=== PATIENT | female | born 1955 | race Caucasian/White ===

== ENCOUNTER 2017-03-06 00:21 | Emergency (ER) | payer BC ==
[2017-03-06 00:32] VITALS: RESP 18
[2017-03-06] MEDS ORDERED: KETOROLAC 60 MG/2 ML VIAL IM STA (00:47)
[2017-03-06] MEDS ORDERED: ORPHENADRINE 30 MG/ML 2 ML VIAL IM STA (00:47)
--- NOTE | 2017-03-06 00:55 | ED ---
Neck Injury/Pain HPI - General Chief Complaint: Neck Pain/Injury Stated Complaint: Headache/Neck Pain Time Seen by Provider: 03/06/17 00:35 Mode of arrival: ambulatory Limitations: no limitations - History of Present Illness Initial Comments: This patient is a 62-year-old woman who presents to be evaluated for right lateral neck pain and stiffness. The patient states that she had been mowing her lawn earlier today, looking over her shoulder quite a bit, and then the pains started tonight. Patient rates the pain as constant, severe, sharp, and worse if she attempts to move her head. The patient has not had fever or chills , neurologic symptoms, chest pain, back pain or dyspnea. Denies other symptoms. MD Complaint: neck pain -: hour(s) Place: street/outdoors Radiation: right lateral, right shoulder Severity: severe Quality: sharp Consistency: constant Improves With: none Worsens With: movement of neck Associated Symptoms: none Treatments Prior to Arrival: Ibuprofen - Related Data Home Medications Medication Instructions Recorded Confirmed DULoxetine HCL [Cymbalta] 20 mg PO 03/06/17 Previous Rx's Medication Instructions Recorded Methocarbamol [Robaxin-750] 750 mg PO TID PRN #30 tablet 03/06/17 predniSONE 60 mg PO DAILY #30 tab 03/06/17 traMADol HCl [Ultram] 50 mg PO Q6H PRN #20 tab 03/06/17 Allergies Allergy/AdvReac Type Severity Reaction Status Date / Time No Known Allergies Allergy Verified 03/06/17 00:31 Review of Systems ROS Statement: Those systems with pertinent positive or pertinent negative responses have been documented in the HPI. ROS Other: All systems not noted in ROS Statement are negative. Constitutional: Denies: fever, chills, weakness Respiratory: Denies: cough, dyspnea Cardiovascular: Denies: chest pain, palpitations Gastrointestinal: Denies: abdominal pain Musculoskeletal: Reports: as per HPI. Denies: back pain Skin: Denies: rash Neurological: Denies: headache, weakness, numbness, paresthesias Past Medical History Past Medical History: Fibromyalgia History of Any Multi-Drug Resistant Organisms: MRSA Date of last positivie culture/infection: 2006 MDRO Source:: back Past Surgical History: Section, Hysterectomy, Tonsillectomy Additional Past Surgical History / Comment(s): ovarian cyst Past Psychological History: No Psychological Hx Reported Smoking Status: Never smoker Past Alcohol Use History: Rare Past Drug Use History: None Reported General Exam Limitations: no limitations General appearance: alert Head exam: Present: atraumatic, normocephalic Eye exam: Present: normal appearance Neck exam: Present: tenderness, other (Patient is resisting rotation of the neck and extension of the neck. There is tenderness to the paraspinal muscles along the right side of the neck and also to the trapezius on the right side. There is increased muscle tone. There is no bony tenderness or deformity there is no left-sided muscular tenderness or tone.). Absent: meningismus Respiratory exam: Present: normal lung sounds bilaterally. Absent: respiratory distress, wheezes, rales, rhonchi, stridor Cardiovascular Exam: Present: regular rate, normal rhythm, normal heart sounds. Absent: systolic murmur, diastolic murmur, rubs, gallop GI/Abdominal exam: Present: soft. Absent: distended, tenderness, guarding, rebound Back exam: Absent: paraspinal tenderness, vertebral tenderness Neurological exam: Present: alert, normal gait Skin exam: Present: warm, dry, intact, normal color. Absent: rash Course Vital Signs 03/06/17 00:27 Temperature 97.3 F L Pulse Rate 69 Respiratory 18 Rate Blood Pressure 157/81 O2 Sat by Pulse 98 Oximetry Disposition Clinical Impression: Strain of neck muscle, Torticollis Disposition: HOME SELF-CARE Condition: Good Instructions: Cervical Strain (ED) Prescriptions: Methocarbamol [Robaxin-750] 750 mg PO TID PRN #30 tablet PRN Reason: pain predniSONE 60 mg PO DAILY #30 tab traMADol HCl [Ultram] 50 mg PO Q6H PRN #20 tab PRN Reason: Pain Referrals: Ke Real MD [Primary Care Provider] - 1-2 days Jason Hernández DO [Doctor of Osteopathic Medicine] - 1-2 days
[2017-03-06] MEDS ORDERED: DIAZEPAM 5 MG/ML 2 ML INJ IM ONE (01:40)
[2017-03-06] MEDS ORDERED: HYDROmorphone 1 MG/ML 1 ML SYRINGE IVP STA (02:32)
[2017-03-06] MEDS ORDERED: predniSONE 20 MG TAB PO STA (02:35)
[2017-03-06] MEDS ORDERED: HYDROmorphone 1 MG/ML 1 ML SYRINGE IM STA (02:45)
[2017-03-06 03:29] VITALS: BP 134/79; PULSE 67; TEMP 97.6
== END 2017-03-06 03:29 | disposition home or self-care (01) ==
LOC: EC 00:21
DX: S16.1XXA Strain of muscle, fascia and tendon at neck level, initial encounter (principal); M43.6 Torticollis; Z79.899 Other long term (current) drug therapy; X58.XXXA Exposure to other specified factors, initial encounter; Y93.H2 Activity, gardening and landscaping; Y92.410 Unspecified street and highway as the place of occurrence of the external cause
CPT/HCPCS: 99283 ×2; 96372 ×5; J2360; J3360; J1885; J1170; J7512

== ENCOUNTER 2018-07-05 06:18 | Day surgery (SDC) | payer BC, MEDICARE ==
[~2018-07-05 06:18] MED LIST: DEXAMETHASONE SOD PHOSPHATE 10 MG/ML 1 ML VIAL IV ONE; HYDROmorphone 0.5 MG/0.5 ML SYRINGE IVP PRN; LIDOCAINE 1% 20 ML VIAL (10MG/ML) FOR IV START INTRADERMA PRN; ONDANSETRON 4 MG/2 ML VIAL IVP ONE; SCOPOLAMINE 1.5MG/72HR PATCH TRANSDERM ONE; SODIUM CHLORIDE 0.9% 1,000 ML IV SCH
[2018-07-05] MEDS ORDERED: MIDAZOLAM 2 MG/2 ML VIAL ONE (07:13)
[2018-07-05] MEDS ORDERED: PHENYLEPHRINE-0.9% NACL SYG 1 MG/10 ML SYRINGE ONE (07:13)
[2018-07-05] MEDS ORDERED: ISOPROTERENOL 250 MCG/1.25 ML SYR IV ONE (07:13)
[2018-07-05] MEDS ORDERED: fentaNYL (PF) 50 MCG/ML 2 ML AMP ONE (07:13)
[2018-07-05] MEDS ORDERED: PROPOFOL 10 MG/ML 20 ML VIAL IV ONE (07:13)
[2018-07-05] MEDS ORDERED: LIDOCAINE 1% INJ 10MG/ML (20 ML MDV) ONE (08:06)
[2018-07-05] MEDS ORDERED: LIDOCAINE 1% INJ 10MG/ML (20 ML MDV) SQ ONE (08:07)
[2018-07-05] MEDS ORDERED: HEPARIN SODIUM (1,000 UNIT/ML) 1,000 UNIT in SODIUM CHLORIDE 0.9% 1,000 ML IRRIGATION ONE (09:40)
[2018-07-05] MEDS ORDERED: HYDROcodone/APAP 5-325MG 1 EACH TAB PO PRN (11:40)
[2018-07-05] MEDS ORDERED: ACETAMINOPHEN TAB 325 MG TAB PO PRN (11:40)
--- NOTE | 2018-07-05 11:50 | P.PRLE ---
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 She had an easily inducible right atrial tachycardia. She also had easily inducible atrial fibrillation The right atrial tachycardia was mapped to the anterior lateral mid right atrium just outside the base of the right atrial appendage. Successful ablation at this site resulted in elimination of the right atrial tachycardia as well as atrial fibrillation. This atrial tachycardia is very likely at least one of her sources of atrial fibrillation. At this point I do not plan to treat her with any antiarrhythmic drugs but will follow her to see if she has any further episodes of atrial fibrillation and if she needs a pulmonary vein isolation or not The LON VASC score is 2 based on her of gender and age and I would treat her with anticoagulation with a NOAC for at least 2 months. Postprocedure If she continues to have episodes of atrial fibrillation without atrial tachycardia, then lifelong anticoagulation should be considered Thank you for entrusting me with the care of the patient Warm regards Sincerely Martin Hernandez
[2018-07-05] MEDS: LACTATED RINGERS 1,000 ML IV SCH ×2 (11:56→12:54)
[2018-07-05] MEDS ORDERED: ACETAMINOPHEN IV (For NPO) 1,000 MG in EMPTY BAG 1 BAG IVPB ONE (12:00)
[2018-07-05 12:49] VITALS: BMI 24.6
--- NOTE | 2018-07-05 13:14 | PCN ---
PROCEDURE NOTE Prema Haney is a 63-year-old female who has had recurrent dizzy spells and palpitations and we have documented narrow complex tachycardia as well as wide-complex tachycardia, possibly an aberrancy. These have been symptomatic episodes and she was brought with presyncope and near syncope. She was brought in for diagnostic EP study and possible radiofrequency ablation. Patient was brought to the EP lab in a fasting state. Written informed consent was obtained prior to the procedure. The right and left groins were prepped and draped as per protocol. Three venous sheaths were placed in the right femoral vein, one venous sheath in the left femoral vein and via these diagnostic catheters were placed in the high right atrium, His bundle, RV and coronary sinus. Sinus cycle length was 835 milliseconds, SD interval 181 milliseconds, QRS 99 milliseconds and QT interval 429 milliseconds. AH interval 61 milliseconds, HV interval 48 milliseconds. Sinus node recovery times of 600 and 500 milliseconds were 1121 millisecond and 1181 milliseconds with a corresponding corrected sinus node recovery times within normal limits. When pacing to evaluate the sinus node at a cycle length of 400 milliseconds from the high right atrium, atrial fibrillation nonsustained, lasting for 10-20 seconds with spontaneous termination reproducibly induced. AV node Wenckebach block 410 milliseconds, Ventricular extra stimulation was performed.burst stimulation was performed ventricular stimulation up to double extra stimuli. No VT was induced. Atrial fibrillation was induced every time. Straight pacing was performed from the high right atrium Extra stimulation was performed from the high right atrium and from the coronary sinus and this resulted in induction of nonsustained atrial tachycardia with the high to low sequence consistent with the right atrial tachycardia. Isuprel was on Isuprel was given and this sustained atrial tachycardia was induced with extra stimulation at 400/ 80 milliseconds. The tachycardia cycle length varied from 300-380 milliseconds and a high to low sequence with him. An irrigated tip catheter was used to map the tachycardia in the right atrium. The tachycardia focus was mapped to the anterolateral an anterolateral right atrium just outside the base of the right atrial appendage on its lateral aspect. With catheter contact the tachycardia were mechanical termination would frequently occur around the site. Often with mechanical stimulation and during RF atrial fib, this tachycardia would organized atrial fibrillation. These points of mechanical termination as well as induction and termination of atrial fibrillation were also tagged and were very close to the right atrial tachycardia focus. Successful RF ablation was applied after 3D mapping and intracardiac echocardiography confirmed the absence of pericardial effusion. The end of the procedure were also confirmed and this was a smooth-walled portion of the skin of the right atrium full not heavily trabeculated area. These points were also tagged and the successful points for the study the early site of activation as well as the site of termination of atrial fibrillation during RF also tagged. RF ablation was applied around the site prior to RF ablation. The phrenic nerve in pacing was tested and there was no stimulation and there was no evidence for 5 nerve stimulation at the sites. Thereafter, RF ablation was applied broadly in this area resulted in elimination of the atrial tachycardia as well as elimination of inducibility of atrial fibrillation, both on and off Isuprel. At the end of the procedure, the catheter was placed high up in the some of the SVC and phrenic nerve could still for a definite nerve was intact. Taking all catheters were then removed at the end of the procedure. The patient was transferred back to telemetry. RESULT: 1. Diagnostic EP study revealing easily inducible right atrial free wall tachycardia, which is also the focus of atrial fibrillation. 2. Successful ablation this site resulted in elimination of both the right atrial tachycardia and this foci of atrial fibrillation . PLAN: 1. Anticoagulate for about 2 months with an anticoagulant. 2. Watch for any episodes of atrial fibrillation and reassess need for any pulmonary vein isolation in the future. MMODL / IJN: [id number] /
[2018-07-05] MEDS: APIXABAN 5 MG TAB PO SCH (15:51)
[2018-07-06] MEDS ORDERED: PANTOPRAZOLE 40 MG TABLET PO SCH (07:30)
--- NOTE | 2018-07-06 08:12 | P.DS ---
Providers Attending physician: Martin Hernandez Primary care physician: [facility] Course: Patient is doing well. She is ambulating in the hallways. She has no groin pain. No hematoma no swelling no chest pain no dizziness lightheadedness no arrhythmias Yesterday she underwent a diagnostic EP study which revealed right atrial tachycardia mid right atrium, anterior lateral. This was documented focus of her atrial tachycardia. Also degenerated to atrial fibrillation. After successful ablation A. fib was noninducible She is doing well vitals are stable blood pressure 111/61 mmHg respirations normal pulse rate in the 70s afebrile 98.4F Breath sounds are clear no rhonchi no crackles Heart sounds S1-S2 normal no murmurs or gallops no rub Abdomen soft Extended is warm no edema Impression Right atrial tachycardia with degenerates into atrial fibrillation status post successful ablation in both atrial tachycardia and atrial fibrillation was rendered noninducible Familial hypercholesterolemia with an LDL of 189 Patient is refusing statins. She has a family history of premature coronary artery disease Both grandfather and her father had premature CAD Plan ELIQUIS for at least 2 months and reassessment thereafter regarding atrial fibrillation. Crestor 20 mg by mouth daily Sleep apnea assessment, referral given Suggest Discharge home today and follow Dr. Araujo in about 1-2 weeks Had a detailed discussion with her regarding atrial fibrillation atrial tachycardia ELIQUIS and treatment of familial hypercholesterolemia and the use of statins I have had multiple discussions regarding the need for statins with her and I did this once again in the presence of a daughter Patient Condition at Discharge: Stable Plan - Discharge Summary Discharge Rx Participant: Yes New Discharge Prescriptions: New Apixaban [Eliquis] 5 mg PO BID #60 tab No Action DULoxetine HCL [Cymbalta] 60 mg PO DAILY Omeprazole Magnesium [PriLOSEC OTC] 20 mg PO DAILY Ibuprofen [Motrin] 800 mg PO RT-Q12H PRN PRN Reason: Mild To Moderate Pain Discharge Medication List DULoxetine HCL [Cymbalta] 60 mg PO DAILY 03/06/17 [History] Omeprazole Magnesium [PriLOSEC OTC] 20 mg PO DAILY 07/02/18 [History] Apixaban [Eliquis] 5 mg PO BID #60 tab 07/05/18 [Rx] Ibuprofen [Motrin] 800 mg PO RT-Q12H PRN 07/05/18 [History] Follow up Appointment(s)/Referral(s): Martin Hernandez MD [STAFF PHYSICIAN] - 2 Weeks (Groin check with Dr. Hernandez/ Jocy [place] nurse practitioner within 1-2 weeks) Activity/Diet/Wound Care/Special Instructions: Post EP study - Ablation instructions 1. Keep access sites dry for 2 days. 2. No heavy lifting or straining for 2 days. 3. Avoid bending the hips repeatedly for 2 days. 4. You may go up and down stairs slowly Call if the following is noted 1. Bleeding, increasing swelling or pain at the access sites. 2. Increasing chest discomfort, especially upon taking a deep breath. 3. Increasing shortness of breath, at rest or with exertion. 4. Undue cough / phlegm 5. Difficulty or pain while swallowing. 6. Pain or change in color in the extremities. 7. Fever, chills, rigors. 8. Increasing headache or neurologic symptoms. 9. Dizziness, fainting, palpitations Start ELIQUIS 5 mg twice daily or Xarelto 20 mg by mouth daily for 2 months post ablation Discharge Disposition: HOME SELF-CARE
[2018-07-06] MEDS: APIXABAN 5 MG TAB PO SCH (08:32)
[2018-07-06 08:46] VITALS: BP 98/64; PULSE 92; RESP 16; TEMP 98
[2018-07-06] MEDS ORDERED: DULoxetine HCL 60 MG CAPSULE.DR PO SCH (09:00)
== END 2018-07-06 10:55 | disposition home or self-care (01) ==
LOC: CATHEP 06:18 → 1SOBS 11:18 → CATHEP 07-06 10:55
PROVIDERS: ATTEND Internal Medicine Clinical Cardiac Electrophysiology
DX: I47.1 Supraventricular tachycardia (principal); I48.91 Unspecified atrial fibrillation; E78.00 Pure hypercholesterolemia, unspecified; E78.5 Hyperlipidemia, unspecified; K21.9 Gastro-esophageal reflux disease without esophagitis; Z82.49 Family history of ischemic heart disease and other diseases of the circulatory system; Z79.899 Other long term (current) drug therapy
CPT/HCPCS: 93623; 93662; 93613; 93653; C1894; C1769 ×2; C1730 ×2; C1731; C1759; C1732; J2250; J2001; J3010; J1644; J0131; J2370; J2704

== ENCOUNTER → 2018-07-18 | Outpatient (CLI) | payer MEDICARE ==
--- NOTE | 2018-07-19 05:32 | CONS ---
CONSULTATION DATE OF SERVICE: 07/18/2018 This 63-year-old lady had been been evaluated in sleep center to rule out obstructive sleep apnea-hypopnea syndrome. HISTORY OF PRESENT ILLNESS/SLEEP-WAKE EVALUATION: Patient's usual sleep schedule from 8:10 p.m. until 6:15 a.m. on working days and from 8:10 until 7 a.m. on weekends. She does have problem with falling asleep, has TV set in bedroom, sleeps on the side or stomach position with snoring. The patient wakes up from sleep up to 5 times and also moves a lot during the night according to her , significant amount of twitching of feet during the sleep. No history of sleep paralysis, cataplexy, or hypnagogic hallucinations. In the morning, patient wakes up tired. Has difficulties to pay attention, has problems with memory, concentration. [place] Sleepiness Scale increased to 9. PAST MEDICAL HISTORY: Positive for episodes of cardiac arrhythmia. I believe it was atrial fibrillation. The patient had ablation on July 05, 2018. Fibromyalgia, acid reflux. PAST SURGICAL HISTORY: , partial hysterectomy, tonsillectomy. MEDICATIONS: Rosuvastatin, Eliquis, Prilosec. SOCIAL HISTORY: Negative for smoking. Alcohol consumption occasional. FAMILY HISTORY: Heart problems, hyperlipidemia, arthritis, snoring, headaches, sinus problems, liver problems. REVIEW OF SYSTEMS: Multiple awakenings from sleep, twitching legs, tiredness and sleepiness during the day. PHYSICAL EXAMINATION: During physical exam, a lady without distress. VITAL SIGNS: BP 129/67, HR 77, RR 16, height 5 feet 1 inch, weight 136 pounds, body mass index 25.6, temperature 96.9, oxygen saturation at room air 99%HEENT: PERRLA, EOMI. Oropharynx practically normal position of soft palate vertically, but very short distance between soft palate and posterior pharyngeal wall. Slight restriction of nasal breathing. NECK: Supple, no JVD. Thyroid is not palpable. LUNGS: Clear to percussion and to auscultation. Good air exchange. No wheezing or rhonchi. HEART: S1, S2 regular. No murmurs, gallops, or rubs. ABDOMEN: Soft and nontender. Bowel sounds are present. No organomegaly appreciated. EXTREMITIES: No clubbing or cyanosis. 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 Cranial nerves 2 to 7 intact. There is no fasciculation or atrophy. noted. No focal deficits observed. IMPRESSION: 1. Snoring, multiple awakenings from sleep, tiredness and sleepiness during the day. Possible obstructive sleep apnea-hypopnea syndrome. 2. Significant amount of twitching legs at night, periodic limb movements. 3. History of cardiac arrhythmias, status post ablation on July 05, 2018. 4. Fibromyalgia. 5. Acid reflux. 6. Status post . 7. Status post partial hysterectomy. 8. Status post tonsillectomy. PLAN: 1. Polysomnography for evaluation of patient's breathing during sleep. 2. CPAP/BiPAP titration if sleep study confirms obstructive sleep apnea-hypopnea syndrome. 3. Preferable position during sleep on the side. 4. No driving if patient feels any sleepiness. 5. I will see patient for follow up visit to explain results of testing and following plan. Thank you very much for referring this patient for consultation. Sincerely, Hayder Bernard MD, PhD, FAASM Diplomat of [employer] [facility] [place] MMODL / IJN: [id number] /
== END ==
LOC: SLEEP 16:11
PROVIDERS: ATTEND Internal Medicine
DX: R06.83 Snoring (principal); G47.61 Periodic limb movement disorder; M79.7 Fibromyalgia; K21.9 Gastro-esophageal reflux disease without esophagitis; Z90.711 Acquired absence of uterus with remaining cervical stump; Z90.89 Acquired absence of other organs; Z98.890 Other specified postprocedural states; Z79.899 Other long term (current) drug therapy; Z79.01 Long term (current) use of anticoagulants; Z86.79 Personal history of other diseases of the circulatory system
CPT/HCPCS: 99211

== ENCOUNTER → 2019-07-22 | Day surgery (SDC) | payer MEDICARE ==
[2019-07-18 16:03] VITALS: BMI 25.6
[~2019-07-22] MED LIST changes: -DEXAMETHASONE SOD PHOSPHATE 10 MG/ML 1 ML VIAL IV ONE; -HYDROmorphone 0.5 MG/0.5 ML SYRINGE IVP PRN; -LIDOCAINE 1% 20 ML VIAL (10MG/ML) FOR IV START INTRADERMA PRN; +LIDOCAINE 1% INJ 10MG/ML (20 ML MDV) ONE; +LIDOCAINE 1% INJ 10MG/ML (20 ML MDV) SQ ONE; +MIDAZOLAM 2 MG/2 ML VIAL IVP ONE; -ONDANSETRON 4 MG/2 ML VIAL IVP ONE; -SCOPOLAMINE 1.5MG/72HR PATCH TRANSDERM ONE
[2019-07-22 09:22] VITALS: BP 126/70; PULSE 90; RESP 16; TEMP 98.1
--- NOTE | 2019-07-22 10:26 | P.PCN ---
Preoperative Diagnosis: Loop monitor implant Primary physicians: Dr. Real Deicer Inspector Electric: Dr. Hernandez Indication: AF detection and management, post cryoablation of the pulmonary veins Patient was brought to the EP lab in a fasting state. Written informed consent was obtained prior to the procedure. The left pectoral area was prepped and draped per protocol. Intravenous antibiotic was administered preoperatively. A subcutaneous Loop monitor was implanted successfully and the wound was closed per protocol. The device was programmed to detect significant luzmaria- arrhythmic and tachy-arrhythmic events, per protocol. Device and programming details: Improvised ILR settings for AF detection and management Pause = 4.5 seconds, number of beats to detect bradycardia = 12, tachycardia detection rate 162 beats a minute and tachycardia detection beats = 48, to reduce false-positive detection Patient underwent EP procedure under conscious sedation/moderate sedation, monitoring of the level of consciousness and physiologic parameters including but not limited to vital signs and oxygenation. Patient tolerated the procedure well without any acute complications. Start time: 1004 Stop time: 1011
--- NOTE | 2019-07-22 10:29 | P.PRLE ---
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 She is not on any anticoagulants now. Her LON VASC score is 2 him a age greater than 65 years and female gender and the revised and recommendations for anticoagulation for females with atrial fibrillation is for LON VASC score starting at 3 I implanted a loop monitor for A. fib detection and management successfully This should help us with her future AF management Thank you for entrusting me with the care of the patient Warm regards Sincerely Martin Hernandez
== END ==
LOC: CATHEP 09:04
PROVIDERS: ATTEND Internal Medicine Clinical Cardiac Electrophysiology
DX: I48.0 Paroxysmal atrial fibrillation (principal); I47.1 Supraventricular tachycardia; R00.2 Palpitations; R42 Dizziness and giddiness; M54.9 Dorsalgia, unspecified; I73.9 Peripheral vascular disease, unspecified; Z82.49 Family history of ischemic heart disease and other diseases of the circulatory system; Z79.899 Other long term (current) drug therapy
CPT/HCPCS: 33285; C1764; J2250; J0690; J2001

== ENCOUNTER → 2023-01-09 | Day surgery (SDC) | payer MEDICARE ==
[2023-01-02 16:00] VITALS: BMI 24.5
[~2023-01-09] MED LIST changes: -MIDAZOLAM 2 MG/2 ML VIAL IVP ONE; +fentaNYL (PF) 50 MCG/ML 2 ML AMP IVP ONE; +fentaNYL (PF) 50 MCG/ML 2 ML AMP ONE
[2023-01-09 10:19] VITALS: BP 146/78; RESP 18; TEMP 97.8
--- NOTE | 2023-01-09 16:19 | P.EPPROC ---
- EP Procedure Note Electrophysiology Procedure Note: Procedure: Loop explant under sedation and local anesthesia. Diagnosis: Loop monitor at LEDY Patient was brought to the EP lab in a fasting state. Written informed consent was obtained prior to the procedure. The subcutaneous device was successfully explanted under local anesthesia. Preoperative antibiotics were administered. The wound was closed in layers and dressed per protocol. Result: Successful loop monitor explantation. Loop monitor implant Primary physicians: [employer] Consultant: Dr. Hernandez Indication: Recurrent palpitations, presyncope and history of atrial fibrillation Patient was brought to the EP lab in a fasting state. Written informed consent was obtained prior to the procedure. The left pectoral area was prepped and draped per protocol. Intravenous antibiotic was administered preoperatively. A subcutaneous Loop monitor was implanted successfully and the wound was closed per protocol. The device was programmed to detect significant luzmaria- arrhythmic and tachy-arrhythmic events, per protocol. Device and programming details: A. fib protocol Patient underwent EP procedure under conscious sedation/moderate sedation, monitoring of the level of consciousness and physiologic parameters including but not limited to vital signs and oxygenation. Patient tolerated the procedure well without any acute complications. Start time: 1129 Stop time: 1207
== END ==
LOC: CATHEP 10:04
PROVIDERS: ATTEND Internal Medicine Clinical Cardiac Electrophysiology
DX: R00.2 Palpitations (principal); I47.1 Supraventricular tachycardia; I73.9 Peripheral vascular disease, unspecified; Z86.79 Personal history of other diseases of the circulatory system; Z82.49 Family history of ischemic heart disease and other diseases of the circulatory system
CPT/HCPCS: 33285; 33286; C1764; J0690; J2001; J3010

== ENCOUNTER → 2023-04-11 | Outpatient (CLI) | payer MEDICARE ==
--- NOTE | 2023-04-15 10:00 | MR ---
EXAMINATION TYPE: MR lumbar spine wo con DATE OF EXAM: 04/11/2023 5:00 PM CLINICAL INDICATION:Female, 68 years old with history of M54.42 M53.2X8, Low back that radiates down both legs. COMPARISON: None TECHNIQUE: Multi planar, multi sequence imaging was performed utilizing: T1-weighted, T2-weighted, a nd turbo inversion recovery imaging of the lumbar spine. IV Contrast: (None if empty) FINDINGS: Alignment: The lumbar vertebral bodies have preserved heights with grade 1 anterolisthesis of L5 on S 1. Cord: The conus medullaris and the distal spinal cord appear unremarkable with regards to their signa l intensity and morphology. Bones/Discs: Minimal disc degeneration changes worse at L3-S1 with disc space narrowing osteophytes a nd Modic endplate changes. Intervertebral disc signal is maintained.perineural cysts visualized 2 on the right measuring up to 14 mm and S3 8 mm. There is some inversion recovery edema around the facet joints of L4-L5 and L5-S1 right and L4-L5 on the left. T12-L1: No evidence of significant spinal canal stenosis or neural foraminal stenosis. L1-L2: Disc bulge and facet joint arthropathy result in mild spinal canal and mild bilateral neural f oraminal stenosis. L2-L3: Disc bulge and facet joint arthropathy result in mild spinal canal and mild bilateral neural f oraminal stenosis. L3-L4: Disc bulge and facet joint arthropathy result in mild spinal canal and mild bilateral neural f oraminal stenosis. Foraminal right protrusion without significant stenosis. L4-L5: Disc bulge and facet joint arthropathy result in mild spinal canal and moderate bilateral neur al foraminal stenosis. L5-S1: Disc uncovering from grade 1 anterolisthesis and facet joint arthropathy with mild spinal fernie l stenosis and moderate bilateral neural foraminal stenosis. No significant spinal canal or neural foraminal stenosis in the remainder of the visualized levels. Other findings: None. IMPRESSION: 1. L3-L4 right foraminal protrusion without significant stenosis. No definitive evidence for signific ant spinal canal stenosis. 2. Active inflammation around the L4-L5 and L5-S1 facet joints on the right and L4-L5 facet joint on the left. 3. Mild disc degeneration with associated osteoarthritic changes. 4. Grade 1 anterolisthesis of L5 on S1.
== END | disposition home or self-care (01) ==
LOC: RADMRIMAIN 16:31
PROVIDERS: ATTEND Psychiatry & Neurology Neurology
DX: M53.2X8 Spinal instabilities, sacral and sacrococcygeal region (principal); M51.16 Intervertebral disc disorders with radiculopathy, lumbar region; M47.26 Other spondylosis with radiculopathy, lumbar region; M43.17 Spondylolisthesis, lumbosacral region
CPT/HCPCS: 72148

== ENCOUNTER → 2023-04-27 | Outpatient (CLI) | payer MEDICARE ==
--- NOTE | 2023-04-27 15:56 | MR ---
EXAMINATION TYPE: MR sacrum/coccyx wo con DATE OF EXAM: 04/27/2023 3:27 PM CLINICAL INDICATION:Female, 68 years old with history of M54.42, M53.2X8; PHH, Low back pain, pain in buttocks and outer thighs COMPARISON: None TECHNIQUE: Triplane multisequence imaging was performed of the pelvis. IV Contrast: cc none FINDINGS: Reproductive: Vagina: Unremarkable. Uterus: The uterus is surgically absent. The ovaries are not definitively visualized may be atrophic or surgically absent. Bladder: Nondistended and grossly unremarkable. Bowel: Unremarkable as visualized. Peritoneum: A small amount of free fluid in the pelvis. Lymph nodes: No evidence of adenopathy. Vasculature: Unremarkable. Musculoskeletal: Bone marrow signal is within normal signal intensity. Mild osteophyte formation sacr oiliac joints. No abnormal bony edema visualized. Perineural cysts involving the S2 and S3 neural for amen on the right measuring up to 15 and 13 mm. Facet joint arthropathy seen in the lower lumbar spin e. Abdominal wall/soft tissues: Unremarkable. IMPRESSION: 1. No evidence for sacroiliitis. Mild degeneration changes of the sacroiliac joints. No evidence of fracture. 2. Perineural cysts at right S2-S3. 3. Degeneration changes of the lower lumbar spine similar to 04/11/2023 MRI.
== END | disposition home or self-care (01) ==
LOC: RADMRIMAIN 14:27
PROVIDERS: ATTEND Psychiatry & Neurology Neurology
DX: M47.26 Other spondylosis with radiculopathy, lumbar region (principal); M53.2X8 Spinal instabilities, sacral and sacrococcygeal region; G96.191 Perineural cyst
CPT/HCPCS: 72195